=== PATIENT | female | born 1990 | race Hispanic/Latino ===

== ENCOUNTER 2016-11-21 19:37 | Observation (INO) | payer BC ==
[2016-11-21 19:42] VITALS: BMI 23.9
[2016-11-21] MEDS ORDERED: DiphenhydrAMINE 50 mg/ml Inj ONE ×2 (19:44→23:26)
[2016-11-21 19:47] VITALS: BP 127/95; PULSE 139; RESP 24; O2SAT 100
[2016-11-21] MEDS ORDERED: DiphenhydrAMINE 50 mg/ml Inj IVP STA ×2 (19:50→23:25)
[2016-11-21 20:09] LABS: BASO % 0.5 % (0.0-2.0); EOS % 0.5 % (0.0-4.0); HEMATOCRIT 39.1 % (34.0-47.0); LYMPH # 3.5 K/uL (1.0-4.3); LYMPH % 41.7 % (20.0-40.0); MEAN CORPUSCULAR HEMOGLOBIN 30.3 pg (27.0-31.0); MEAN CORPUSCULAR HGB CONC 33.3 g/dL (33.0-37.0); MEAN PLATELET VOLUME 8.4 fl (7.2-11.7); MONO # 0.7 K/uL (0.0-0.8); MONO % 8.7 % (0.0-10.0); NEUT # 4.1 K/uL (1.8-7.0); NEUT % 48.6 % (50.0-75.0); RED CELL DISTRIBUTION WIDTH 13.3 % (11.5-14.5); WHITE BLOOD COUNT 8.5 K/uL (4.8-10.8)
[2016-11-21 20:31] LABS: ALB/GLOB RATIO 1.7 (1.0-2.1); ALKALINE PHOSPHATASE 68 U/L (38-126); ALT/SGPT 33 U/L (9-52); AST/SGOT 29 U/L (14-36); BILIRUBIN,TOTAL 0.4 mg/dl (0.2-1.3); BLOOD UREA NITROGEN 14 mg/dl (7-17); CARBON DIOXIDE 20 mmol/L (22-30); CHLORIDE 103 mmol/L (98-107); GFR AFRICAN-AMERICAN > 60; GLUCOSE,RANDOM 136 mg/dL (65-105); POTASSIUM 2.8 MMOL/L (3.6-5.0); SODIUM 139 mmol/l (132-148); TOTAL PROTEIN 7.7 G/DL (6.3-8.2)
[2016-11-21] MEDS ORDERED: Potassium Chloride 20 mEq ER Tab PO STA (20:40)
[2016-11-21] MEDS ORDERED: Potassium CL 10mEq/100ml 100 ML IVPB ONE (20:40)
--- NOTE | 2016-11-21 20:57 | ED PDOC ---
HPI: General Adult Time Seen by Provider: 11/21/16 19:49 Chief Complaint (Nursing): Allergic Reaction Chief Complaint (Provider): Allergic Reaction History Per: Patient History/Exam Limitations: no limitations Onset/Duration Of Symptoms: Mins (x30) Current Symptoms Are (Timing): Better Additional Complaint(s): Chelsy Bailey is a 25 year old female who presents to the emergency department for an evaluation of a sudden onset allergic reaction associated with tongue/lips swelling, difficulty swallowing, rash on forehead and cheeks, chest pain, chills, and palpitations status post exposure to mold while cleaning apartment 30 minutes prior to arrival. Patient stated symptoms are similar to prior allergic episodes and subsequently injected her Epinephrine pen to right thigh when she did not have Benadryl at home. She also reported symptoms have subsided upon arrival to ED. PMD: none provided Past Medical History Reviewed: Historical Data, Nursing Documentation, Vital Signs Vital Signs: Last Vital Signs Temp Pulse 139 H 11/21/16 19:42 Resp 24 11/21/16 19:42 BP 127/95 H 11/21/16 19:42 Pulse Ox 100 11/21/16 22:48 - Medical History PMH: Anxiety, Asthma, Bipolar Disorder - Surgical History Other surgeries: nasal - Family History Family History: States: No Known Family Hx - Social History Current smoker - smoking cessation education provided: No Alcohol: Social Drugs: Denies - Home Medications Home Medications: Ambulatory Orders Medication Instructions Recorded Epinephrine HCl [Epipen 0.3 mg IM ONCE PRN #0.3 ml 11/21/16 Auto-Injector] - Allergies Allergies/Adverse Reactions: Allergies Allergy/AdvReac Type Severity Reaction Status Date / Time mold Allergy ANAPHYLAXIS Verified 11/21/16 19:42 Review of Systems ROS Statement: Except As Marked, All Systems Reviewed And Found Negative (and as per HPI) Constitutional: Positive for: Chills ENT: Positive for: Mouth Swelling (lips/tongue), Throat Pain (with swallowing) Cardiovascular: Positive for: Chest Pain, Palpitations Skin: Positive for: Rash (forehead/cheeks) Physical Exam - Reviewed Nursing Documentation Reviewed: Yes Vital Signs Reviewed: Yes - Physical Exam Appears: Positive for: Well, Non-toxic, No Acute Distress Head Exam: Positive for: ATRAUMATIC, NORMOCEPHALIC Skin: Positive for: Warm, Dry, Rash (subtle erythema forehead and around to zygoma bilaterally) Eye Exam: Positive for: EOMI, PERRL ENT: Negative for: Pharyngeal Erythema, Tonsillar Exudate, Tonsillar Swelling, Other (uvular edema) Neck: Positive for: Painless ROM, Supple Cardiovascular/Chest: Positive for: Chest Non Tender, Tachycardia (regular rhythm). Negative for: Murmur Respiratory: Positive for: Normal Breath Sounds. Negative for: Accessory Muscle Use, Wheezing, Respiratory Distress Gastrointestinal/Abdominal: Positive for: Soft. Negative for: Tenderness Back: Positive for: Normal Inspection. Negative for: Vertebral Tenderness Extremity: Positive for: Normal ROM. Negative for: Pedal Edema, Deformity Lymphatic: Negative for: Adenopathy Neurologic/Psych: Positive for: Alert, Mood/Affect (Anxious affect). Negative for: Motor/Sensory Deficits - Laboratory Results Result Diagrams: 11/21/16 20:05 11/21/16 20:05 - ECG O2 Sat by Pulse Oximetry: 100 (RA) Pulse Ox Interpretation: Normal Medical Decision Making Medical Decision Making: Initial Impression: Allergic reaction S/P self administered Epinephrine Initial Plan: * EKG * Benadryl 50mg IVP * KCL 100ml IVPB * Prednisone 125mg IVP * Admit to hospital Scribe Attestation: Documented by Li Flores, acting as a scribe for Cat Millard MD. Provider Scribe Attestation: All medical record entries made by the Scribe were at my direction and personally dictated by me. I have reviewed the chart and agree that the record accurately reflects my personal performance of the history, physical exam, medical decision making, and the department course for this patient. I have also personally directed, reviewed, and agree with the discharge instructions and disposition. ED OBSERVATION Date of observation admission: 11/21/16 Time of observation admission: 20:00 - Observation admission statement Patient is being placed in observation because:: Allergic reaction - Goals of Observation Goals of observation are:: resolution of sever symptoms S/P Epinephrine administration - Progress Note Progress Note: Time: 2129 --Patient is resting comfortably with stable vital signs. Time: 2319 --Feels like her throat is itchy. Benadryl ordered Time: 2400 --Pt feels better. Eager to be discharged. Disposition - Clinical Impression Clinical Impression: Allergic reaction Counseled Patient/Family Regarding: Studies Performed, Diagnosis, Need For Followup, Rx Given - Disposition Disposition: Routine/Home Disposition Time: 20:00 Condition: IMPROVED
--- NOTE | 2016-11-23 11:04 | CARD ---
APPROVED REPORT EKG Measurement Heart [id number] <Conclusion> Normal sinus rhythm Normal ECG
== END 2016-11-22 00:15 | disposition home or self-care (01) ==
LOC: H.ER 19:37 → H.EROBSV 19:58
PROVIDERS: ADMIT Emergency Medicine; ATTEND Emergency Medicine
DX: T78.49XA Other allergy, initial encounter (principal); X58.XXXA Exposure to other specified factors, initial encounter; Z77.120 Contact with and (suspected) exposure to mold (toxic); R00.2 Palpitations; R07.9 Chest pain, unspecified; R21 Rash and other nonspecific skin eruption; R68.83 Chills (without fever); F31.9 Bipolar disorder, unspecified; J45.909 Unspecified asthma, uncomplicated; F41.9 Anxiety disorder, unspecified
CPT/HCPCS: 80053; 84484; 85025; 93005; 96374; 96375; 96376; 99283; G0378; J1200; J2930; J3480